=== PATIENT | female | born 1980 ===

== ENCOUNTER 2019-03-16 12:10 | Emergency (ER) | payer OTHER ==
[~2019-03-16] VITALS: Ht 154.9 cm; Wt 75.3 kg
== END 2019-03-16 18:02 | disposition home or self-care (01) ==
LOC: ER 12:10
DX: K83.8 Other specified diseases of biliary tract (principal); R10.11 Right upper quadrant pain

== ENCOUNTER 2021-09-15 10:32 | Emergency (ER) | payer OTHER ==
[~2021-09-15] VITALS: Ht 154.9 cm; Wt 64.4 kg
== END 2021-09-15 15:23 | disposition home or self-care (01) ==
LOC: ER 10:32
DX: R10.9 Unspecified abdominal pain (principal)

== ENCOUNTER 2021-09-28 09:37 | Outpatient (CLI) | payer OTHER | END 2021-09-28 09:42 | disposition home or self-care (01) | LOC: NUCLEAR 09:37 | PROVIDERS: ATTEND Emergency Medicine | DX: K80.20 Calculus of gallbladder without cholecystitis without obstruction (principal); Z88.6 Allergy status to analgesic agent | CPT/HCPCS: 78227; A9537; J2805 ==

== ENCOUNTER 2022-12-17 12:15 | Emergency (ER) | payer OTHER ==
[~2022-12-17] VITALS: Ht 154.9 cm; Wt 74.8 kg
[2022-12-17 16:51] LABS: HEMATOCRIT 37.2 % (36.0-45.00); HEMOGLOBIN 12.5 g/dL (12.0-15.00); MEAN CELL VOLUME 82.3 fL (80.00-100.00); MEAN CORPUSCULAR HEMOGLOBIN 27.7 pg (27.00-32.0); MEAN CORPUSCULAR HGB CONC 33.7 g/dl (32.0-36.0); PLATELET COUNT 317 K/uL (150-450); RED BLOOD COUNT 4.52 M/uL (4.00-6.00); RED CELL DISTRIBUTION WIDTH 13.4 % (11.5-14.5)
[2022-12-17 17:10] LABS: URINE APPEARANCE Clear; URINE BILIRRUBIN Negative (NEGATIVE); URINE BLOOD Negative; URINE COLOR Yellow; URINE GLUCOSE Negative (NEGATIVE); URINE LEUKOCYTE Moderate; URINE NITRATE Negative; URINE PROTEIN Negative (NEGATIVE); URINE UROBILINOGEN 0.2 E.U./dl
[2022-12-17 17:16] LABS: URINE BACTERIA 1497.9 uL (0.0-1933); URINE EPITHELIAL CELLS 16.5 uL (0.0-38.8); URINE RBC 36.6 uL (0.0-20.8); URINE WBC 54.7 uL (0.0-23.2)
[2022-12-17 17:23] LABS: ALBUMIN 3.9 gm/dL (3.4-5.0); BILIRUBIN TOTAL 0.45 mg/dL (0.3-1.2); CALCIUM 9.1 mg/dL (8.5-10.1); CREATININE SERUM 0.9 mg/dL (0.55-1.02); GLOBULINA 5.1 G/DL (2.4-3.5); POTASSIUM 3.76 mEq/L (3.5-5.1)
== END 2022-12-17 21:24 | disposition home or self-care (01) ==
LOC: ER 12:15
PROVIDERS: General Practice
DX: K80.50 Calculus of bile duct without cholangitis or cholecystitis without obstruction (principal); Z88.6 Allergy status to analgesic agent